=== PATIENT | male | born 1970 | race Caucasian/White ===

== ENCOUNTER 2016-11-01 12:50 | Inpatient (IN) | payer BC ==
[~2016-11-01] VITALS: Ht 185.4 cm; Wt 145.0 kg
--- NOTE | ~2016-11-01 | CR267 ---
[facility] A Service of [facility] RADIOLOGY TEXT RESULTS PATIENT: MONICA BRYANT LOCATION: [facility] 467-01 : [birth year] UNIT #: [id number] AGE: [address]: Nick Gutierrez MD SEX: M ORDER DR: [id number] [facility]. [place], [place] [address] [id number] MR#: [id number] #: [id number] NAME: MONICA BRYANT : 1970 SEX: M STUDY DATE/TIME: 11/02/2016 11:04 UNIT: [facility] ROOM: [facility] STUDY DESCRIPTION: CR Upper GI W Air W SBFT Attending Physician: Nick Gutierrez M.D. Ordering Physician: Da Figueroa Jr., M.D. Primary Care Physician: Ne Suazo M.D. MEDICAL IMAGING REPORT This report is preliminary unless electronic signature is present EXAM Upper GI and small bowel follow through 11/02/2016 INDICATIONS 46-year-old male with a history of small bowel obstruction at an outside facility transferred to our facility for further care. Symptoms for a day including abdominal pain and nausea. History of lap-band placement. TECHNIQUE Following a environmental service aide radiograph of the abdomen, fluoroscopic imaging of the abdomen was performed in multiple projections to evaluate the small bowel. Imaging of the esophagus and the stomach was also obtained. We have no comparison studies. FINDINGS Notes indicate 1.6 minutes of fluoroscopy time was used in the case. 61 fluoroscopic images from the procedure were saved to the PACS system. Grinder Set Up Operator Thread Tool image demonstrates a lap band in the left upper quadrant. Residual contents in the fecal stream noted at the level of the hepatic flexure. There is gaseous distension of small and large bowel. What appears to be small bowel in the mid abdomen measures up to 3.8 cm which is mildly dilated. The esophagus demonstrates an unremarkable primary stripping wave. Mild delayed passage of contrast through the esophagus across the gastric band into the stomach. The stomach was incompletely distended and suboptimally evaluated but otherwise appears unremarkable for single contrast technique. There was prompt emptying of contrast in the stomach into the duodenal sweep. Ligament of Treitz in the left mid abdomen. Opacification of small bowel progressed over time with eventual opacification of the colon by the 90-minute rosita. There are dilated small bowel loops in the right mid abdomen and right lower quadrant without a well-defined transition point. Relative paucity of small bowel in the left STS. [facility] A Service of [facility] RADIOLOGY TEXT RESULTS PATIENT: MONICA BYRANT LOCATION: [facility] 467-01 : [birth year] UNIT #: [id number] AGE: [address]: Nick Gutierrez MD SEX: M ORDER DR: lower quadrant. No well-defined distinct transition point. Imaging findings suggest a low grade or partial small bowel obstruction. Spot fluoroscopic views also demonstrate dilated small bowel in the right mid abdomen and lower quadrant. The terminal ileum was not clearly identified but there is no separation of bowel to suggest active inflammatory change or sequela of chronic inflammatory bowel disease. Appendix not identified. IMPRESSION 1. Imaging features suggestive of an incomplete or partial small bowel obstruction. Loosely defined transition between nondilated and dilated small bowel in the mid abdomen and right lower quadrant. Etiology is unclear. Correlation with cross-sectional imaging would be complimentary. 2. Transit time from the stomach to the large bowel is about 90 minutes. 3. Lap-band present. 4. Notes indicate that 1.6 minutes of fluoroscopy time was used in the case. 61 fluoroscopic images from the procedure were saved to the DR PACS. Dictated by... Gabino Durham M.D. THIS IS AN ELECTRONICALLY VERIFIED REPORT Gabino Durham M.D. at 11/03/2016 3:10 PM MALORIE/jody TD: 11/02/2016 18:27 JOB #: [id number] MEDICAL IMAGING REPORT Page 1 of 1 COPY
--- NOTE | ~2016-11-01 | BMI ---
[facility] Nutrition Therapy DATE: 11/02/16 Patient: MONICA BRYANT Physician: DELL Address: [facility] Room/Bed: [address] [place] [address], Zip: [place] [address] Admit Date: 11/01/16 Date of : [birth year] Height: 6 1 Weight: 324 147.2 HIGH BMI NOTE: DX: 46 y/o male admitted with possible partial SBO ANTHROPOMETRICS: Ht: 73", Wt: 147.2 kg, BMI: 42 (stage III obese) DIET: NPO INTERVENTION: Restricted diet, meds/fluids per MD RECOMMENDATIONS: Suggest healthy heart diet to promote a gradual weight loss towards a healthy BMI range. Respectfully, Grace Srinivasan RD, LD [facility] cc: client file
--- NOTE | ~2016-11-01 | HP ---
Unit #: [id number] #: [id number] Patient: MONICA BRYANT [id number] [place], [place] [address] [id number] I MR#: [id number] NAME: MONICA BRYANT ROOM: 46 Age: 46 Sex: M Admission Date: 11/01/2016 : 1970 Attending Physician: Nick Gutierrez M.D. Primary Care Physician: Ne Suazo M.D. HISTORY AND PHYSICAL CHIEF COMPLAINT Nausea, vomiting, and abdominal pain. PRESENT ILLNESS Patient is a 46-year-old, white male who was in normal good health up until 3:00 a.m. yesterday when he developed midepigastric abdominal pain with nausea and vomiting. He had one episode of nausea and vomiting and felt better after vomiting. He has had no fever or chills and really no other symptoms. He did have a small formed bowel movement yesterday morning. He has a known past history for LAP-band in the year [address] Gutierrez and apparently did very well with this with over 100 pounds of weight loss. He has had no recent medical problems or issues. PAST MEDICAL HISTORY SERIOUS ILLNESSES: Except for his morbid obesity. He is a nonsmoker, nondrinker. SURGERY IN THE PAST Patient has had LAP-band, as noted above, in year 2005. No mother surgery. MEDICATIONS None chronically. ALLERGIES None known. TRANSFUSIONS None in the past. FAMILY HISTORY Noncontributory according to patient. SOCIAL HISTORY Patient is . He a nonsmoker, nondrinker. Has a normal good appetite. No recent weight change. 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 IMMUNIZATIONS Up to date. REVIEW OF SYSTEMS Ten system review has been performed, which is non-remarkable, except that in the present illness. PHYSICAL EXAMINATION Unit #: [id number] #: [id number] Patient: MONICA BRYANT VITAL SIGNS: Temperature: Patient is afebrile. Vital signs are normal. HEENT: Non-remarkable. NECK: Supple. CHEST: There is equal bilateral expansion with bilateral equal breath sounds. LUNGS: Clear bilaterally. HEART: Regular rhythm without murmurs or gallops. There is no evidence of cardiomegaly clinically. ABDOMEN: Soft, nontender, and benign. It is obese, but nondistended. There is no mass or organomegaly. There is no guarding or rebound and there is no evidence of hernias or ascites. EXTREMITIES: Full range of motion without limitation. There is no evidence of peripheral edema. BACK EXAM: No CVA tenderness. NEUROLOGICAL: Grossly intact. DIAGNOSTIC STUDIES IMAGING: CAT scan revealed question of partial small bowel obstruction. His repeat abdominal x-ray shows nonspecific changes with no obvious obstruction. LABORATORY: Values are normal. IMPRESSION The patient may have had a twisted loop of bowel, but now is asymptomatic. The plan will be to go ahead with upper GI series and small bowel followthrough and, if the patient has no evidence of any obstruction, he will be started on a diet and possibly sent home in the morning. Dictated by Da Figueroa Jr., M.Jacquie. ANTOINE/benjy TD: 11/02/2016 07:36 JOB #: [id number] HISTORY AND PHYSICAL Page 1 of 1 X Da Figueroa MD X HISTORY AND PHYSICAL
--- NOTE | ~2016-11-01 | DS ---
Unit #: [id number] #: [id number] Patient: MONICA BRYANT [id number] [place], [place] [address] [id number] I MR#: [id number] NAME: MONICA BRYANT ROOM: 46 Age: 46 Sex: M Admission Date: 11/01/2016 : 1970 Discharge Date: 11/03/2016 Attending Physician: Nick Gutierrez M.D. Primary Care Physician: Ne Suazo M.D. DISCHARGE SUMMARY ADMITTING AND FINAL DIAGNOSIS Partial small bowel obstruction. SECONDARY DIAGNOSES Exogenous obesity, status post lap band placement in 2005 and past history of hypertension. BRIEF SUMMARY The patient is a 46-year-old white male, who was admitted complaining of severe abdominal pain with nausea and vomiting and was seen in the emergency room. He had some mild tenderness in the mid epigastrium. CT scan of the abdomen revealed evidence of possible small bowel obstruction. Laboratory values were all normal. Physical exam is noted above did reveal some tenderness in the midepigastrium, otherwise was not remarkable. HOSPITAL COURSE The patient was admitted, observed and his symptoms completely of resolved without any significant intervention. He did have an upper GI series and small bowel series yesterday, which revealed still possibly a mild partial small bowel obstruction. Since he is presently asymptomatic, he is being given a choice of going home or staying and he will plan on going home and if he develops recurrent symptoms, will return. Otherwise, he will be followed up in the office in the next few weeks. Dictated by... Da Figueroa Jr., M.D. ANTOINE/speedy TD: 11/03/2016 16:43 JOB #: [id number] DISCHARGE SUMMARY Page 1 of 1 X Da Figueroa MD X DISCHARGE SUMMARY
--- NOTE | ~2016-11-01 | CR4 ---
[facility] A Service of [facility] RADIOLOGY TEXT RESULTS PATIENT: MONICA BRYANT LOCATION: [facility]09-02 : [birth year] UNIT #: [id number] AGE: [address]: Nick Gutierrez MD SEX: M ORDER DR: [id number] [address] [address] [id number] I MR#: [id number] Acc #: [id number] NAME: MONICA BRYANT : 1970 SEX: M STUDY DATE/TIME: 11/01/2016 16:10 UNIT: [facility] ROOM: [facility] STUDY DESCRIPTION: CR Abdomen Flat Upright or Dec Attending Physician: Nick Gutierrez M.D. Ordering Physician: Nick Gutierrez M.D. Primary Care Physician: Ne Suazo M.D. MEDICAL IMAGING REPORT This report is preliminary unless electronic signature is present EXAM Flat and upright views of the abdomen. DATE 11/01/2016 HISTORY 46-year-old male with a history of abdominal pain, distension and bloating which began 1 1/2 weeks ago. COMPARISON None FINDINGS Gastric band device is in place, with band at or just below the expected location of the esophagogastric junction, insufflation port at the left midabdomen. There is some nonspecific but nonobstructive bowel gas pattern. Mild stool burden is present in the ascending colon. Contrast material was seen within the region of the urinary bladder. Imaged lung bases appear clear. No acute osseous abnormalities are identified. IMPRESSION 1. Nonspecific but nonobstructive-appearing bowel gas pattern. 2. Features of contrast material within the urinary bladder. Please correlate for IV contrast administration outside of the radiology department. Dictated by... [facility] A Service of [facility] RADIOLOGY TEXT RESULTS PATIENT: MONICA BRYANT LOCATION: [facility] : [birth year] UNIT #: [id number] AGE: [address]: Nick Gutierrez MD SEX: M ORDER DR: Graciela Valdez M.D. THIS IS AN ELECTRONICALLY VERIFIED REPORT Graciela Valdez M.D. at 11/02/2016 12:27 PM IMER/luz marina TD: 11/01/2016 20:06 JOB #: [id number] MEDICAL IMAGING REPORT Page 1 of 1 COPY
[2016-11-01] MEDS ORDERED: MOBIC15 MG PO (14:52)
[2016-11-02 02:53] LABS: HEMATOCRIT 42.3 % (38.0-50.0); HEMOGLOBIN 14.4 gm/dL (13.0-16.0); MEAN CELL VOLUME 96.3 FL (83-96); MEAN CORPUSCULAR HEMOGLOBIN 32.7 PG (28-34); MEAN PLATELET VOLUME 9.4 FL (6.5-11.5); RED BLOOD COUNT 4.39 X10e (3.90-5.60); RED CELL DISTRIBUTION WIDTH 12.8 % (11.0-15.5); WHITE BLOOD COUNT 6.8 X10e3 (4.0-10.5)
[2016-11-02 03:38] LABS: CALCIUM SERUM 8.6 mg/dL (8.4-10.2); GLOM FILT RATE Estimated 88.6 mL/min (>60); POTASSIUM 3.9 mmol/L (3.5-5.1)
== END 2016-11-03 10:10 | disposition home or self-care (01) | DRG 389 ==
LOC: C4C 14:08 → UNDOADMOB 14:08 → C4C 14:08
PROVIDERS: Surgery
DX: K56.60 Unspecified intestinal obstruction (principal); Z68.41 Body mass index [BMI] 40.0-44.9, adult; E66.01 Morbid (severe) obesity due to excess calories
CPT/HCPCS: 74020; 74249; 80048; 85027; J2270; J2405